=== PATIENT | female | born 1980 | race Caucasian/White ===

== ENCOUNTER 2016-10-05 12:11 | Emergency (ER) | payer OTHER ==
[2016-10-05] MEDS ORDERED: Adacel Vial IM ONE ×2 (12:30→12:32)
--- NOTE | 2016-10-05 12:35 | ERPHSYRPT ---
- History of Present Illness Time Seen by Provider: 10/05/16 12:24 Source: patient, family Patient Subjective Stated Complaint: PT REPROTS STEPPING ON A FENCE POST LAST NIGHT-REPORTS UNABLE TO STOP BLEEDING-DENIES NUMBNESS OR TINLGING Triage Nursing Assessment: PT PINK WARM ET [id number] NOTED TO RIGHT FOOT-BLEEDING CONTROLLED WITH PRESSURE-PEDAL PULSE REGULAR ET STRONG Physician History: CC: cut foot Hx: 36 y/o patient of Dr Chaim Heck cut right foot on a fence post last night. She needs tetanus vaccine. She has propped it up and cleansed the wound but it continues to have some bleeding. No FB. No other injuries. Pain mild. Occurred: yesterday Lower Extremities Pain: foot: right Allergies/Adverse Reactions: metronidazole [From Flagyl] Allergy (Mild, Verified 10/05/16 12:23) trimethoprim [From Septra] Allergy (Mild, Verified 10/05/16 12:23) Home Medications: Metoprolol Succinate 25 mg Xl* [Toprol-Xl 25MG Tablets] 25 mg PO DAILY [History] Paroxetine HCl [Paxil] 10 mg PO DAILY 05/29/15 [History] Hx Tetanus, Diphtheria Vaccination/Date Given: No Hx Influenza Vaccination/Date Given: Yes (2015) Hx Pneumococcal Vaccination/Date Given: No Immunizations Up to Date: Yes - Review of Systems Constitutional: No Symptoms Musculoskeletal: Injury (right foot) Neurological: No Focal Weakness, No Headache, No Parasthesia - Past Medical History Pertinent Past Medical History: Yes Neurological History: No Pertinent History ENT History: No Pertinent History Cardiac History: Arrhythmia, Other Respiratory History: Asthma Endocrine Medical History: Hypothyroidism, Other Musculoskeletal History: No Pertinent History GI Medical History: No Pertinent History History: No Pertinent History Psycho-Social History: Anxiety, Depression, Other Female Reproductive Disorders: Endometriosis Other Medical History: bradycardia with bigemity, low blood sugar - Past Surgical History Past Surgical History: Yes Neuro Surgical History: No Pertinent History Cardiac: No Pertinent History Respiratory: No Pertinent History Gastrointestinal: No Pertinent History Genitourinary: No Pertinent History Musculoskeletal: No Pertinent History Female Surgical History: Tubal Ligation Other Surgical History: half of thyroid removed. SKIN GRAFT - Social History Smoking Status: Current every day smoker How long have you smoked: YRS Exposure to second hand smoke: Yes Drug Use: none Patient Lives Alone: No Significant Family History: no pertinent family hx - Female History Hx Last Menstrual Period: THIS MONTH Hx Now: No - Nursing Vital Signs Nursing Vital Signs: Initial Vital Signs Pulse Rate 68 10/05/16 12:19 Respiratory Rate 20 10/05/16 12:19 Blood Pressure 142/87 10/05/16 12:19 O2 Sat by Pulse Oximetry 96 10/05/16 12:19 Pain Scale Pain Intensity 2 - Physical Exam General Appearance: alert Cardiovascular/Respiratory Exam: regular rate/rhythm Neuro/Tendon Exam: normal sensation, normal motor functions Mental Status Exam: alert, oriented x 3, cooperative Skin Exam: warm, dry, laceration (1 cm right plantar distal. No FB. Mild oozing. Not gaping. No sign of infection.) SpO2: 96 Oxygen Delivery: Room Air - Course Nursing assessment & vital signs reviewed: Yes Ordered Tests: Active Orders 24 hr Category Date Time Status Wound Care STAT Care 10/05/16 12:30 Active Medication Summary Discontinued Medications Generic Name Dose Route Start Last Admin Trade Name Freq PRN Reason Stop Dose Admin Diphtheria/Tetanus/Acell Pertussis 0.5 ml 10/05/16 12:30 Adacel Vial IM 10/05/16 12:31 .ONCE ONE - Progress Progress Note: 10/05/16 12:33 She declines xray. Wound too old for sutures and they do not appear indicated. Will cleanse and apply surgicel dressing. Wound instr given. Counseled pt/family regarding: diagnosis, need for follow-up - Departure Time of Disposition: 12:33 Departure Disposition: Home Clinical Impression: Foot laceration Qualifiers: Encounter type: initial encounter Laterality: right Qualified Code(s): S91.311A - Laceration without foreign body, right foot, initial encounter Condition: Stable Critical Care Time: No Referrals: LORETTA HECK [ACTIVE STAFF] - Additional Instructions: Elevate leg today. Starting tomorrow cleanse wound with mild soap and water daily. Keep wound clean and dry. Report any sign of infection right away. LACERATION CARE 1. Do not use peroxide, merthiolate, alcohol, or betadine. 2. Keep wound clean and dry. 3. Change dressing if it becomes wet or soiled. 4. If you must work, wear protective covering. 5. You may return to the emergency department or see your family physician for suture removal. 6. See your family physician or return to the emergency department for any of the following signs or symptoms: A. Redness B. Swelling C. Discolored drainage D. Red streaks E. Elevated temperature F. Other signs of infection
[2016-10-05 13:27] VITALS: BP 131/77; PULSE 50; O2SAT 99
== END 2016-10-05 12:55 | disposition home or self-care (01) ==
LOC: ED 12:11
DX: S91.311A Laceration without foreign body, right foot, initial encounter (principal); W45.8XXA Other foreign body or object entering through skin, initial encounter
CPT/HCPCS: 90471; 90715; 99283

== ENCOUNTER 2017-11-20 19:22 | Emergency (ER) | payer OTHER ==
--- NOTE | 2017-11-20 19:55 | ERPHSYRPT ---
- History of Present Illness Time Seen by Provider: 11/20/17 19:47 Source: patient Exam Limitations: no limitations Patient Subjective Stated Complaint: pt states she has a pinched nerve at l5 and has been having back pain for the last week. rates pain at 10/10 and states it shoots up the middle of her back Triage Nursing Assessment: pt alert and oriented, answers questions approp. pt ambulatory with slow gait noted, respiration nonlabored. skin pink warm and dry. pedal pulses and cap refill to bilat lwoer ext wnl. Physician History: This is a 37-year-old white female with history of pinched nerve in the back and pain in her back since 14 years old. Also history of arrhythmia asthma hypothyroidism anxiety, depression, endometriosis She arrives with complaint of pain in her back midline lumbar region symptoms since one week. She denies any new injuries states she is taking Naprosyn at home. Pain is worse with movement. Past medical history includes arrhythmia, asthma, hypothyroidism, anxiety, depression, endometriosis, bradycardia with bigeminy, low blood sugar Past surgical history includes tubal ligation half of her thyroid removed skin graft, uterine ablation Social history positive tobacco use denies alcohol or illicit drug use. Timing/Duration: week(s) Severity: moderate (one week) Modifying Factors: Improves With: movement Associated Symptoms: No nausea, No vomiting, No abdominal pain, No shortness of breath, No heartburn, No diaphoresis, No cough, No chills, No chest pain, No fever, No headaches, No loss of appetite, No malaise, No rash, No syncope, No seizure, No weakness Allergies/Adverse Reactions: metronidazole [From Flagyl] Allergy (Mild, Verified 10/05/16 12:23) trimethoprim [From Septra] Allergy (Mild, Verified 10/05/16 12:23) Home Medications: Metoprolol Succinate 25 mg Xl* [Toprol-Xl 25MG Tablets] 12.5 mg PO DAILY [History] Paroxetine HCl [Paxil] 10 mg PO DAILY 05/29/15 [History] Hx Tetanus, Diphtheria Vaccination/Date Given: Yes (2016) Hx Influenza Vaccination/Date Given: No Hx Pneumococcal Vaccination/Date Given: No Immunizations Up to Date: Yes - Review of Systems Constitutional: No Fever, No Chills Eyes: No Symptoms Ears, Nose, & Throat: No Symptoms Respiratory: No Cough, No Dyspnea Cardiac: No Chest Pain, No Edema, No Syncope Abdominal/Gastrointestinal: No Abdominal Pain, No Nausea, No Vomiting, No Diarrhea Genitourinary Symptoms: No Dysuria Musculoskeletal: Back Pain, No Arthralgias, No Neck Pain, No Deformity, No Fall , No Injury, No Joint Redness, No Joint Pain, No Joint Swelling, No Myalgias Skin: No Rash Neurological: No Dizziness, No Focal Weakness, No Sensory Changes Psychological: No Symptoms Endocrine: No Symptoms All Other Systems: Reviewed and Negative - Past Medical History Pertinent Past Medical History: Yes Neurological History: No Pertinent History ENT History: No Pertinent History Cardiac History: Arrhythmia, Other Respiratory History: Asthma Endocrine Medical History: Hypoglycemia, Hypothyroidism, Other Musculoskeletal History: No Pertinent History GI Medical History: No Pertinent History History: No Pertinent History Psycho-Social History: Anxiety, Depression, Other Female Reproductive Disorders: Endometriosis Other Medical History: bradycardia with bigeminy, borderline personality - Past Surgical History Past Surgical History: Yes Neuro Surgical History: No Pertinent History Cardiac: No Pertinent History Respiratory: No Pertinent History Gastrointestinal: No Pertinent History Genitourinary: No Pertinent History Musculoskeletal: No Pertinent History Female Surgical History: Dilation & Curettage, Tubal Ligation Other Surgical History: half of thyroid removed. SKIN GRAFT - Social History Smoking Status: Current every day smoker How long have you smoked: 12 yrs Exposure to second hand smoke: Yes Drug Use: none Patient Lives Alone: No Significant Family History: no pertinent family hx - Female History Hx Last Menstrual Period: uterine ablation Hx Now: No - Nursing Vital Signs Nursing Vital Signs: Initial Vital Signs Pulse Rate 67 11/20/17 19:30 Respiratory Rate 16 11/20/17 19:30 Blood Pressure 145/85 11/20/17 19:30 O2 Sat by Pulse Oximetry 97 11/20/17 19:30 Pain Scale Pain Intensity [Lower Back] 10 Pain Intensity 9 - Physical Exam General Appearance: mild distress Eye Exam: PERRL/EOMI, eyes nml inspection Ears, Nose, Throat Exam: normal ENT inspection, TMs normal, pharynx normal, moist mucous membranes Neck Exam: normal inspection, non-tender, supple, full range of motion Respiratory Exam: normal breath sounds, lungs clear, No respiratory distress Cardiovascular Exam: regular rate/rhythm, normal heart sounds, normal peripheral pulses Gastrointestinal/Abdomen Exam: soft, normal bowel sounds, No tenderness, No mass Back Exam: other (drying machine back tender midline lumbar region with palpation and movement) Extremity Exam: normal inspection, normal range of motion, pelvis stable Neurologic Exam: alert, oriented x 3, 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, 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, normal mood/affect, nml cerebellar function, nml station & gait, sensation nml, No motor deficits Skin Exam: normal color, warm, dry, No rash Lymphatic Exam: No adenopathy SpO2 Interpretation: normal (97%) SpO2: 97 Oxygen Delivery: Room Air Ordered Tests: Medication Summary Discontinued Medications Generic Name Dose Route Start Last Admin Trade Name Freq PRN Reason Stop Dose Admin Cyclobenzaprine HCl 10 mg 11/20/17 20:49 11/20/17 20:53 Cyclobenzaprine 10 Mg PO 11/20/17 20:50 10 mg STAT ONE Administration Cyclobenzaprine HCl Confirm 11/20/17 20:52 Cyclobenzaprine 10 Mg Administered 11/20/17 20:53 Dose 10 mg .ROUTE .STK-MED ONE Ketorolac Tromethamine 60 mg 11/20/17 20:34 11/20/17 20:38 Toradol 30 Mg Injection IM 11/20/17 20:35 60 mg STAT ONE Administration Ketorolac Tromethamine Confirm 11/20/17 20:35 Toradol 30 Mg Injection Administered 11/20/17 20:36 Dose 60 mg .ROUTE .STK-MED ONE - Progress Progress: improved Progress Note: 11/20/17 20:50 29-year-old white female arrives with complaint of midline lumbar back pain symptoms for a week she denies any injury she does have a history of a pinched nerve in her back in the past she has no neurologic symptoms pain is localized midline lumbar region with palpation and movement. Patient denies any new injuries patient has been given Toradol 60 mg IM will give patient Flexeril 10 mg by mouth (she does not want a shot of Norflex) Will plan to have the patient return home Flexeril as prescribed continue Naprosyn. Patient is to follow-up with her family doctor. - Departure Time of Disposition: 20:51 Departure Disposition: Home Clinical Impression: Lumbar strain Back pain Qualifiers: Back pain location: low back pain Chronicity: acute Back pain laterality: midline Sciatica presence: without sciatica Qualified Code(s): M54.5 - Low back pain Condition: Fair Critical Care Time: No Referrals: LORETTA HECK [Primary Care Provider] - Instructions: Low Back Pain (DC) Additional Instructions: Return home. Continue Naprosyn may alternatively take Advil every 6 hours do not take both. Tylenol every 4 hours as needed for pain. Flexeril as prescribed. Follow-up with your family doctor if symptoms are worse, no better in 48 hours, or persist longer than one week. Return for acute distress or for severe symptoms. May return to work November 23 unless problems if so follow-up with your family doctor. Prescriptions: Cyclobenzaprine HCl [Flexeril] 10 mg PO TID #15 tablet
[2017-11-20] MEDS ORDERED: TORAdol 30 mg Injection IM ONE (20:34)
[2017-11-20] MEDS ORDERED: TORAdol 30 mg Injection ONE (20:35)
[2017-11-20] MEDS ORDERED: Cyclobenzaprine 10 MG PO ONE ×2 (20:49→21:13)
[2017-11-20] MEDS ORDERED: Cyclobenzaprine 10 MG ONE ×2 (20:52→21:16)
[2017-11-20 21:12] VITALS: O2SAT 97
[2017-11-20 21:39] VITALS: BP 127/69; PULSE 51
== END 2017-11-20 21:30 | disposition home or self-care (01) ==
LOC: ED 19:22
DX: S39.012A Strain of muscle, fascia and tendon of lower back, initial encounter (principal); M54.5 Low back pain; Z79.899 Other long term (current) drug therapy
CPT/HCPCS: 96372; 99284; J1885; A9270-GY

== ENCOUNTER 2018-07-27 11:09 | Day surgery (SDC) | payer OTHER ==
[2018-07-27] MEDS ORDERED: Xylocaine-Mpf 2% 5 Ml Vial IJ ONE (11:10)
[2018-07-27] MEDS ORDERED: DIPRIVAN 200 MG/20 ML IV ONE (11:10)
[2018-07-27] MEDS ORDERED: Depo-Medrol 40 MG/ML IM ONE (11:10)
--- NOTE | 2018-07-27 14:44 | XRAY ---
Indication: Bilateral L4-S1 MBB. Intraoperative fluoroscopy was provided for 16 seconds. Single digital spot image submitted for interpretation demonstrates posterior needle tips projecting over the expected course of the left and right L4-S1 nerve roots. Correlate with intraoperative findings/report.
--- NOTE | 2018-07-27 15:01 | XRAY ---
16 seconds fluoroscopy time in surgery fro bilateral L4-S1 MBB.
[2018-07-27] MEDS ORDERED: Lactated Ringers 1,000 ML IV ONE (17:03)
== END 2018-07-27 13:45 | disposition home or self-care (01) ==
LOC: SDC-PAIN 11:09
PROVIDERS: ATTEND Psychiatry & Neurology Pain Medicine
DX: M47.816 Spondylosis without myelopathy or radiculopathy, lumbar region (principal); M19.90 Unspecified osteoarthritis, unspecified site; R00.2 Palpitations; L30.9 Dermatitis, unspecified; F32.9 Major depressive disorder, single episode, unspecified
CPT/HCPCS: 64493; 64494; 72020; 77002; 84703; J1030; J2704

== ENCOUNTER 2018-07-29 01:56 | Emergency (ER) | payer OTHER ==
[2018-07-29] MEDS ORDERED: Zofran 4 MG/2 ML VIAL IV ONE (02:11)
[2018-07-29] MEDS ORDERED: Sodium Chloride 0.9% 1000 ML 1,000 ML IV STA (02:11)
[2018-07-29] MEDS ORDERED: MORPHINE SULFATE 2 MG INJ IV ONE (02:11)
[2018-07-29 02:35] LABS: BASOPHIL % 0.2 % (0.0-0.4); Basophil (Absolute #) 0.03 (0-0.4); Eosinophil % 0.3 % (0.00-5.0); Eosinophil (Absolute #) 0.05 (0-0.5); Granulocyte Absolute (ANC) 12.68 (1.4-6.9); Hematocrit 41.5 % (35-47); Lymphocyte (Absolute #) 1.77 (1.0-4.6); Lymphocytes % 11.7 % (24.0-44.0); Mean Cell Volume 86.8 fl (78-100); Mean Corpuscular Hemoglobin 29.3 pg (26-32); Mean Corpuscular Hgb Concent. 33.7 g/dl (32-36); Mean Platelet Volume 11.1 fl (6-9.5); Monocyte (Absolute #) 0.57 (0.0-1.3); Monocytes % 3.8 % (0.0-12.0); Platelet Count 275 K/mm3 (150-450); Red Blood Count 4.78 M/mm3 (4.1-5.4); Red Cell Distribution Width 12.9 % (11.5-14.0); White Blood Count 15.1 K/mm3 (4.0-10.5)
[2018-07-29] MEDS ORDERED: Zofran 4 MG/2 ML VIAL ONE (02:39)
[2018-07-29] MEDS ORDERED: MORPHINE SULFATE 2 MG INJ ONE (02:40)
[2018-07-29] MEDS ORDERED: Sodium Chloride 0.9% 1000 ML 1,000 ML ONE (02:40)
[2018-07-29 02:57] LABS: ALKALINE PHOSPHATASE 64 U/L (38-126); ANION GAP 13.4 MEQ/L (5-15); BLOOD UREA NITROGEN 12 mg/dL (7-17); CHLORIDE 103 mmol/L (98-107); Calcium 9.5 mg/dL (8.4-10.2); Carbon Dioxide 27 mmol/L (22-30); Creatinine 1 0.77 mg/dL (0.52-1.04); Glucose 114 mg/dL (74-106); NT PRO BNP 101 pg/mL (0-450); Potassium 4.6 mmol/L (3.5-5.1); SGOT/AST 23 U/L (14-36); SGPT/ALT 23 U/L (0-35); SODIUM 139 mmol/L (137-145); Total Protein 7.4 g/dL (6.3-8.2)
[2018-07-29] MEDS ORDERED: Protonix 40MG Tablet PO ONE (03:08)
[2018-07-29] MEDS ORDERED: Pepcid 20 MG PO ONE (03:09)
[2018-07-29] MEDS ORDERED: Pepcid 20 MG ONE (03:12)
[2018-07-29] MEDS ORDERED: Protonix 40MG Tablet ONE (03:12)
[2018-07-29 04:30] LABS: Appearance SLIGHTLY CLOUDY (CLEAR); Bacteria RARE /HPF (NEGATIVE); Bilirubin NEGATIVE (NEGATIVE); Blood NEGATIVE Ery/ul (0-5); Epithelial Cells FEW /HPF (FEW); Glucose NEGATIVE (NEGATIVE); Ketones NEGATIVE (NEGATIVE); Leukocyte Esterase NEGATIVE (NEGATIVE); Mucus SLIGHT /HPF (NEGATIVE); Nitrite NEGATIVE (NEGATIVE); Protein,Urine Dip NEGATIVE (Negative); Specific Gravity 1.014 (1.005-1.025); Urobilinogen NEGATIVE mg/dL (0-1)
--- NOTE | 2018-07-29 05:39 | ERPHSYRPT ---
- History of Present Illness Historian: patient Exam Limitations: no limitations Patient Subjective Stated Complaint: pt states, "my boyfriend and I were getting ready to go watch a movie and lay down and my chest started hurting". Pt describes chest pain as sharp as if someone were stabbing with a knife". Triage Nursing Assessment: pt arrived by ambulance, pt aeto x3, cooperative, tearful at times. Pt c/o midsternal chest pain with radiation to back. Pt had pain block to lower back yesterday done [facility] by Dr. Mir. Lungs clear, heart tones reg, abd soft with active bs x4 quad. no edema noted. Physician History: Pt is a 37 y/o female with a h/o bradycardia with bigeminies, presented to the ED with chest pain. Pt stated, the pain is substernal and is worse with palpation. Pt also states, has epigastric discomfort as well. Pt did get ASA 325 on route, as well as Nitro s.l. The pain did not improve. Pt denies F/C/ S. No SOB or cough. No N/V/D or diaphoresis. Timing/Duration: today Activities at Onset: none Quality: sharpness, stabbing Location: substernal, epigastric Chest Pain Radiation: no radiation Severity of Pain-Max: moderate Severity of Pain-Current: mild Modifying Factors: Improves With: morphine Associated Symptoms: abdominal pain (epigastric) Prior Chest Pain/Cardiac Workup: no prior chest pain Nitro Today/Relief: 0.4 mg x 1 Aspirin Treatment Today: 325 mg x 1 Allergies/Adverse Reactions: metronidazole [From Flagyl] Allergy (Mild, Verified 10/05/16 12:23) trimethoprim [From Septra] Allergy (Mild, Verified 10/05/16 12:23) amitriptyline Adverse Reaction (Mild, Verified 07/29/18 02:27) Home Medications: Metoprolol Succinate 25 mg Xl* [Toprol-Xl 25MG Tablets] 12.5 mg PO DAILY [History] Paroxetine HCl [Paxil] 10 mg PO DAILY 05/29/15 [History] Hydrocodone/APAP 5-325 Tab^^^ [Hardaway 5-325 Tablet^^^] 5 - 325 mg PO Q4-6HPRN PRN 07/29/18 [History] hydrOXYzine HCl [Hydroxyzine HCl] 25 mg PO TID 07/29/18 [History] Hx Tetanus, Diphtheria Vaccination/Date Given: Yes Hx Influenza Vaccination/Date Given: No Hx Pneumococcal Vaccination/Date Given: No Immunizations Up to Date: Yes - Review of Systems Constitutional: No Fever, No Chills Eyes: No Symptoms Ears, Nose, & Throat: No Symptoms Respiratory: No Cough, No Dyspnea Cardiac: Chest Pain Abdominal/Gastrointestinal: Abdominal Pain Genitourinary Symptoms: No Dysuria Musculoskeletal: No Back Pain, No Neck Pain Neurological: No Dizziness, No Focal Weakness, No Sensory Changes - Past Medical History Pertinent Past Medical History: Yes Neurological History: No Pertinent History ENT History: No Pertinent History Cardiac History: Arrhythmia Respiratory History: Asthma Endocrine Medical History: Hypothyroidism Musculoskeletal History: Arthritis GI Medical History: No Pertinent History History: No Pertinent History Psycho-Social History: Anxiety, Depression, Other Female Reproductive Disorders: No Pertinent History Other Medical History: bradycardia with bigeminy, borderline personality - Past Surgical History Past Surgical History: Yes Neuro Surgical History: No Pertinent History Cardiac: No Pertinent History Respiratory: No Pertinent History Gastrointestinal: No Pertinent History Genitourinary: No Pertinent History Musculoskeletal: No Pertinent History Female Surgical History: Dilation & Curettage, Tubal Ligation Other Surgical History: half of thyroid removed. SKIN GRAFT - Social History Smoking Status: Current every day smoker How long have you smoked: 12 yrs Exposure to second hand smoke: Yes Drug Use: none Patient Lives Alone: No Significant Family History: no pertinent family hx - Female History Hx Last Menstrual Period: 03/2017 Hx Now: No - Nursing Vital Signs Nursing Vital Signs: Initial Vital Signs Temperature 98.0 F 07/29/18 02:23 Pulse Rate 49 L 07/29/18 02:23 Respiratory Rate 17 07/29/18 02:23 Blood Pressure 125/76 07/29/18 02:23 O2 Sat by Pulse Oximetry 93 L 07/29/18 02:23 Pain Scale Pain Intensity 10 - Physical Exam General Appearance: no apparent distress, alert Eye Exam: PERRL/EOMI, eyes nml inspection Ears, Nose, Throat Exam: normal ENT inspection, moist mucous membranes Neck Exam: normal inspection, non-tender, supple, full range of motion Respiratory Exam: normal breath sounds, lungs clear, No respiratory distress Cardiovascular Exam: regular rate/rhythm, normal heart sounds, other ( reproducable chest pain with palpation) Gastrointestinal/Abdomen Exam: soft, tenderness (epigastric), No mass Back Exam: normal inspection, No CVA tenderness, No vertebral tenderness Extremity Exam: normal inspection, normal range of motion Neurologic Exam: alert, oriented x 3, cooperative, normal mood/affect, sensation nml, No motor deficits Skin Exam: normal color, warm, dry SpO2: 93 - Course Nursing assessment & vital signs reviewed: Yes EKG Interpreted by Me: RATE (47 bpm), Sinus Donny, NORMAL INTERVALS, NORMAL QRS Ordered Tests: Active Orders 24 hr Category Date Time Status Oxygen-ED Only Nasal Cannula 2 lpm Care 07/29/18 02:11 Active CBC W DIFF Stat Lab 07/29/18 02:11 Completed CMP Stat Lab 07/29/18 02:44 Completed D-DIMER QUANTITATION Stat Lab 07/29/18 02:44 Completed NT PRO BNP Stat Lab 07/29/18 02:44 Completed TROPONIN Q3H Lab 07/29/18 02:44 Completed TROPONIN Q3H Lab 07/29/18 05:03 Completed TROPONIN Q3H Lab 07/29/18 08:15 Ordered TROPONIN Q3H Lab 07/29/18 11:15 Ordered TROPONIN Q3H Lab 07/29/18 14:15 Ordered Urinalysis with Microscopy Stat Lab 07/29/18 04:25 Completed Medication Summary Discontinued Medications Generic Name Dose Route Start Last Admin Trade Name Maurizioq PRN Reason Stop Dose Admin Famotidine 40 mg 07/29/18 03:09 07/29/18 03:13 Pepcid 20 Mg PO 07/29/18 03:10 40 mg STAT ONE Administration Famotidine Confirm 07/29/18 03:12 Pepcid 20 Mg Administered 07/29/18 03:13 Dose 40 mg .ROUTE .STK-MED ONE Sodium Chloride 1,000 mls @ 999 mls/hr 07/29/18 02:11 07/29/18 02:43 Sodium Chloride 0.9% 1000 Ml IV 07/29/18 03:11 999 mls/hr .Q1H1M STA Administration Sodium Chloride Confirm 07/29/18 02:40 Sodium Chloride 0.9% 1000 Ml Administered 07/29/18 02:41 Dose 1,000 mls @ ud .ROUTE .STK-MED ONE Morphine Sulfate 2 mg 07/29/18 02:11 07/29/18 02:43 Morphine Sulfate 2 Mg Inj IV 07/29/18 02:12 2 mg STAT ONE Administration Morphine Sulfate Confirm 07/29/18 02:40 Morphine Sulfate 2 Mg Inj Administered 07/29/18 02:41 Dose 2 mg .ROUTE .STK-MED ONE Ondansetron HCl 4 mg 07/29/18 02:11 07/29/18 02:43 Zofran 4 Mg/2 Ml Vial IV 07/29/18 02:12 4 mg STAT ONE Administration Ondansetron HCl Confirm 07/29/18 02:39 Zofran 4 Mg/2 Ml Vial Administered 07/29/18 02:40 Dose 4 mg .ROUTE .STK-MED ONE Pantoprazole Sodium 40 mg 07/29/18 03:08 07/29/18 03:14 Protonix 40mg Tablet PO 07/29/18 03:09 40 mg STAT ONE Administration Pantoprazole Sodium Confirm 07/29/18 03:12 Protonix 40mg Tablet Administered 07/29/18 03:13 Dose 40 mg .ROUTE .STK-MED ONE Lab/Rad Data: Laboratory Result Diagrams 07/29/18 02:11 07/29/18 02:44 Laboratory Results 07/29/18 07/29/18 07/29/18 Range/Units 05:03 04:25 02:44 WBC (4.0-10.5) K/mm3 RBC (4.1-5.4) M/mm3 Hgb (12.0-16.0) gm/dl Hct (35-47) % MCV (78-100) fl MCH (26-32) pg MCHC (32-36) g/dl RDW (11.5-14.0) % Plt Count (150-450) K/mm3 MPV (6-9.5) fl Gran % (36.0-66.0) % Eos # (Auto) (0-0.5) Absolute Lymphs (auto) (1.0-4.6) Absolute Monos (auto) (0.0-1.3) Lymphocytes % (24.0-44.0) % Monocytes % (0.0-12.0) % Eosinophils % (0.00-5.0) % Basophils % (0.0-0.4) % Absolute Granulocytes (1.4-6.9) Basophils # (0-0.4) D-Dimer (215-500) ng/mL Sodium (137-145) mmol/L Potassium (3.5-5.1) mmol/L Chloride (98-107) mmol/L Carbon Dioxide (22-30) mmol/L Anion Gap (5-15) MEQ/L BUN (7-17) mg/dL Creatinine (0.52-1.04) mg/dL Estimated GFR ML/MIN Glucose (74-106) mg/dL Calcium (8.4-10.2) mg/dL Total Bilirubin (0.2-1.3) mg/dL AST (14-36) U/L ALT (0-35) U/L Alkaline Phosphatase (38-126) U/L Troponin I < 0.012 < 0.012 (0.000-0.034) ng/mL NT-Pro-B Natriuret Pep (0-450) pg/mL Serum Total Protein (6.3-8.2) g/dL Albumin (3.5-5.0) g/dL Urine Color YELLOW (YELLOW) Urine Appearance SLIGHTLY CLOUDY (CLEAR) Urine pH 6.0 (5-6) Ur Specific Gobler 1.014 (1.005-1.025) Urine Protein NEGATIVE (Negative) Urine Ketones NEGATIVE (NEGATIVE) Urine Blood NEGATIVE (0-5) Oscar/ul Urine Nitrite NEGATIVE (NEGATIVE) Urine Bilirubin NEGATIVE (NEGATIVE) Urine Urobilinogen NEGATIVE (0-1) mg/dL Ur Leukocyte Esterase NEGATIVE (NEGATIVE) Urine WBC (Auto) NONE (0-5) /HPF Urine RBC (Auto) NONE (0-2) /HPF U Epithel Cells (Auto) FEW (FEW) /HPF Urine Bacteria (Auto) RARE (NEGATIVE) /HPF Urine Mucus (Auto) SLIGHT (NEGATIVE) /HPF Urine Glucose NEGATIVE (NEGATIVE) mg/dL 07/29/18 07/29/18 07/29/18 Range/Units 02:44 02:44 02:11 WBC 15.1 H (4.0-10.5) K/mm3 RBC 4.78 (4.1-5.4) M/mm3 Hgb 14.0 (12.0-16.0) gm/dl Hct 41.5 (35-47) % MCV 86.8 (78-100) fl MCH 29.3 (26-32) pg MCHC 33.7 (32-36) g/dl RDW 12.9 (11.5-14.0) % Plt Count 275 (150-450) K/mm3 MPV 11.1 H (6-9.5) fl Gran % 84.0 H (36.0-66.0) % Eos # (Auto) 0.05 (0-0.5) Absolute Lymphs (auto) 1.77 (1.0-4.6) Absolute Monos (auto) 0.57 (0.0-1.3) Lymphocytes % 11.7 L (24.0-44.0) % Monocytes % 3.8 (0.0-12.0) % Eosinophils % 0.3 (0.00-5.0) % Basophils % 0.2 (0.0-0.4) % Absolute Granulocytes 12.68 H (1.4-6.9) Basophils # 0.03 (0-0.4) D-Dimer < 171 L (215-500) ng/mL Sodium 139 (137-145) mmol/L Potassium 4.6 (3.5-5.1) mmol/L Chloride 103 (98-107) mmol/L Carbon Dioxide 27 (22-30) mmol/L Anion Gap 13.4 (5-15) MEQ/L BUN 12 (7-17) mg/dL Creatinine 0.77 (0.52-1.04) mg/dL Estimated GFR > 60.0 ML/MIN Glucose 114 H (74-106) mg/dL Calcium 9.5 (8.4-10.2) mg/dL Total Bilirubin 0.30 (0.2-1.3) mg/dL AST 23 (14-36) U/L ALT 23 (0-35) U/L Alkaline Phosphatase 64 (38-126) U/L Troponin I (0.000-0.034) ng/mL NT-Pro-B Natriuret Pep 101 (0-450) pg/mL Serum Total Protein 7.4 (6.3-8.2) g/dL Albumin 4.0 (3.5-5.0) g/dL Urine Color (YELLOW) Urine Appearance (CLEAR) Urine pH (5-6) Ur Specific Gobler (1.005-1.025) Urine Protein (Negative) Urine Ketones (NEGATIVE) Urine Blood (0-5) Oscar/ul Urine Nitrite (NEGATIVE) Urine Bilirubin (NEGATIVE) Urine Urobilinogen (0-1) mg/dL Ur Leukocyte Esterase (NEGATIVE) Urine WBC (Auto) (0-5) /HPF Urine RBC (Auto) (0-2) /HPF U Epithel Cells (Auto) (FEW) /HPF Urine Bacteria (Auto) (NEGATIVE) /HPF Urine Mucus (Auto) (NEGATIVE) /HPF Urine Glucose (NEGATIVE) mg/dL - Progress Progress: improved Air Movement: good Progress Note: 07/29/18 05:41 Pt was seen and examined. Lab work was done and EKG. Pt is in sinus donny as she is on a beta osito. She is non symptomatic. Troponins x2 are normal. D Dimer is normal and UA as well. Pt has some leukocytosis that is probably reactive. Pt did get Morphine once, and I gave her Protonix and Pepcid PO. Pt is much improved and pain resolved. Pt should f/u with her PCp and consider a course of Protonix PO vs GI referral. Blood Culture(s) Obtained: No Antibiotics given: No Will see patient in: office Counseled pt/family regarding: need for follow-up - Departure Departure Disposition: Home Clinical Impression: Chest pain Condition: Stable Critical Care Time: No Referrals: ADEOLA DEGROOT NP [Primary Care Provider] - Additional Instructions: F/U with PCp for a Protonix course vs GI referral.
[2018-07-29 05:55] VITALS: BP 118/78; PULSE 46; O2SAT 98
== END 2018-07-29 06:04 | disposition home or self-care (01) ==
LOC: ED 01:56
DX: R07.9 Chest pain, unspecified (principal); F41.9 Anxiety disorder, unspecified; F32.9 Major depressive disorder, single episode, unspecified; E03.9 Hypothyroidism, unspecified; Z79.899 Other long term (current) drug therapy
CPT/HCPCS: 36415; 80053; 81001; 83880; 84484; 85025; 85379; 96360; 96374; 96375; 99284; J2270; J2405; A9270-GY

== ENCOUNTER 2020-11-21 19:33 | Emergency (ER) | payer OTHER ==
[2020-11-21] MEDS ORDERED: Sodium Chloride 0.9% 1000 ML 1,000 ML IV STA (20:35)
[2020-11-21 20:53] LABS: Appearance SLIGHTLY CLOUDY (CLEAR); Bacteria RARE /HPF (NEGATIVE); Bilirubin NEGATIVE (NEGATIVE); Blood NEGATIVE Ery/ul (0-5); Epithelial Cells RARE /HPF (FEW); Glucose NEGATIVE (NEGATIVE); Ketones NEGATIVE (NEGATIVE); Leukocyte Esterase NEGATIVE (NEGATIVE); Mucus SLIGHT /HPF (NEGATIVE); Nitrite NEGATIVE (NEGATIVE); Protein,Urine Dip NEGATIVE (Negative); RBC 0-2 /HPF (0-2); Specific Gravity 1.021 (1.005-1.025); Urobilinogen 2 mg/dL (0-1)
[2020-11-21] MEDS ORDERED: Sodium Chloride 0.9% 1000 ML 1,000 ML ONE (21:36)
[2020-11-21 21:38] LABS: Absolute Neutrophil Ct (ANC) 6.32 (1.4-6.9); BASOPHIL % 0.5 % (0.0-0.4); Basophil (Absolute #) 0.05 (0-0.4); Eosinophil % 2.2 % (0.00-5.0); Eosinophil (Absolute #) 0.21 (0-0.5); Hematocrit 42.4 % (35-47); Lymphocytes % 24.2 % (24.0-44.0); Mean Cell Volume 86.4 fl (78-100); Mean Corpuscular Hemoglobin 28.5 pg (26-32); Mean Platelet Volume 10.6 fl (7.5-11.0); Monocyte (Absolute #) 0.62 (0.0-1.3); Monocytes % 6.5 % (0.0-12.0); Neutrophil % 66.6 % (36.0-66.0); Platelet Count 284 K/mm3 (150-450); Red Blood Count 4.91 M/mm3 (4.1-5.4); Red Cell Distribution Width 13.7 % (11.5-14.0); White Blood Count 9.5 K/mm3 (4.0-10.5)
--- NOTE | 2020-11-21 21:46 | ERPHSYRPT ---
- History of Present Illness Time Seen by Provider: 11/21/20 20:30 Historian: patient Exam Limitations: no limitations Patient Subjective Stated Complaint: several bm daily x 3 days, but not loose, having abd pain to LUQ and mid abd region Triage Nursing Assessment: pt had LUQ yesterday and it radiated to mid center upper abd region this morning. Pt has had several normal bm's the last few days, not diarrhea, and no BM today. Abd soft with active bs x4 quad, nontender on palpation. Pt c/o low back pain and frequent urination, no burning with urinating. Physician History: Patient is a 40-year-old female presents to our ED with complaints of left upper quadrant pain radiating towards her epigastric region. Pain started this morning. Patient states that she has been experiencing several bowel movements per day for the past few days. No diarrhea. No nausea or vomiting. No rash. No trauma. No fevers. Pain described as an ache that radiates from flank to epigastric region. No chest pain no shortness of breath. Patient denies history of the same. Symptoms are mild to moderate in intensity. No specific worsening improving factors. Patient voices no other complaints or concerns at this time. Timing/Duration: today Activities at Onset: none Quality: aching Abdominal Pain Onset Location: LUQ Pain Radiation: epigastric Severity of Pain-Max: moderate Severity of Pain-Current: mild Modifying Factors: Improves With: nothing Associated Symptoms: denies symptoms Previous symptoms: no prior history Allergies/Adverse Reactions: metronidazole [From Flagyl] Allergy (Mild, Verified 11/21/20 20:39) trimethoprim [From Septra] Allergy (Mild, Verified 11/21/20 20:39) amitriptyline Adverse Reaction (Mild, Verified 11/21/20 20:39) Home Medications: Metoprolol Succinate 25 mg Xl* [Toprol-Xl 25MG Tablets] 12.5 mg PO DAILY 05/29/15 [History] PARoxetine HCl [Paxil] 20 mg PO DAILY 05/29/15 [History] Baclofen 10 mg PO DAILY PRN PRN 11/21/20 [History] Melatonin 10 mg PO DAILY 11/21/20 [History] Meloxicam 15 mg PO DAILY 11/21/20 [History] Hx Tetanus, Diphtheria Vaccination/Date Given: Yes Hx Influenza Vaccination/Date Given: No Hx Pneumococcal Vaccination/Date Given: No Immunizations Up to Date: Yes Travel Risk - International Travel Have you traveled outside of the country in past 3 weeks: No - Coronavirus Screening Are you exhibiting any of the following symptoms?: No Close contact with a COVID-19 positive Pt in past 14-21 Days: No - Vaccine Status Have you recieved a Covid-19 vaccination: Yes 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[place] - Vaccination Dates Date of 2cond Vaccination (if applicable): 10/16/20 - Review of Systems Constitutional: No Symptoms, No Fever, No Chills Eyes: No Symptoms Ears, Nose, & Throat: No Symptoms Respiratory: No Symptoms, No Cough, No Dyspnea Cardiac: No Symptoms, No Chest Pain, No Edema, No Syncope Abdominal/Gastrointestinal: No Symptoms, No Abdominal Pain, No Nausea, No Vomiting, No Diarrhea Genitourinary Symptoms: No Symptoms, No Dysuria Musculoskeletal: No Symptoms, No Back Pain, No Neck Pain Skin: No Symptoms, No Rash Neurological: No Symptoms, No Dizziness, No Focal Weakness, No Sensory Changes Psychological: No Symptoms Endocrine: No Symptoms Hematologic/Lymphatic: No Symptoms Immunological/Allergic: No Symptoms All Other Systems: Reviewed and Negative - Past Medical History Pertinent Past Medical History: Yes Neurological History: No Pertinent History ENT History: No Pertinent History Cardiac History: Arrhythmia Respiratory History: Asthma Endocrine Medical History: Hypothyroidism Musculoskeletal History: Arthritis GI Medical History: No Pertinent History History: No Pertinent History Psycho-Social History: Anxiety, Depression, Other Female Reproductive Disorders: Endometriosis Other Medical History: bradycardia with bigeminy, borderline personality - Past Surgical History Past Surgical History: Yes Neuro Surgical History: No Pertinent History Cardiac: No Pertinent History Respiratory: No Pertinent History Gastrointestinal: No Pertinent History Genitourinary: No Pertinent History Musculoskeletal: No Pertinent History Female Surgical History: Dilation & Curettage, Tubal Ligation Other Surgical History: half of thyroid removed. SKIN GRAFT. thermoablation - Social History Smoking Status: Current every day smoker How long have you smoked: 15 yrs Exposure to second hand smoke: Yes Drug Use: none Patient Lives Alone: Yes Significant Family History: no pertinent family hx - Female History Hx Now: No - Nursing Vital Signs Nursing Vital Signs: Initial Vital Signs Temperature 98.7 F 11/21/20 20:26 Pulse Rate 63 11/21/20 20:26 Respiratory Rate 18 11/21/20 20:26 Blood Pressure 150/82 11/21/20 20:26 O2 Sat by Pulse Oximetry 98 11/21/20 20:26 Pain Scale Pain Intensity 7 - Physical Exam General Appearance: no apparent distress, alert Eye Exam: PERRL/EOMI, eyes nml inspection Ears, Nose, Throat Exam: normal ENT inspection, pharynx normal, moist mucous membranes Neck Exam: normal inspection, non-tender, supple, full range of motion Respiratory Exam: normal breath sounds, lungs clear, airway intact, No respiratory distress Cardiovascular Exam: regular rate/rhythm, normal heart sounds, normal peripheral pulses Gastrointestinal/Abdomen Exam: soft, other (Mild left CVA tenderness.), No tenderness, No mass Pelvic Exam: not done Back Exam: normal inspection, normal range of motion, No CVA tenderness, No vertebral tenderness Extremity Exam: normal inspection, normal range of motion, pelvis stable Neurologic Exam: alert, oriented x 3, cooperative, normal mood/affect, nml cerebellar function, sensation nml, No motor deficits Skin Exam: normal color, warm, dry Lymphatic Exam: No adenopathy SpO2 Interpretation: normal SpO2: 98 O2 Delivery: Room Air - Course Nursing assessment & vital signs reviewed: Yes - CT Exams Abdomen/Pelvis CT Interpretation: Tele-radiologist Report (Enlarged complex predominantly cystic 4.1 x 2.7 x 2.5 cm right ovary. Contracted gallbladder. CT scan abdomen pelvis otherwise negative.) Ordered Tests: Active Orders 24 hr Category Date Time Status IV Insertion STAT Care 11/21/20 20:35 Active ABDOMEN AND PELVIS W CONTRAST [CT] Stat Exams 11/21/20 20:35 Taken CBC W DIFF Stat Lab 11/21/20 21:35 Completed CMP Stat Lab 11/21/20 21:35 Completed HCG,QUALITATIVE URINE Stat Lab 11/21/20 20:46 Completed UA W/RFX UR CULTURE Stat Lab 11/21/20 20:46 Completed Medication Summary Discontinued Medications Generic Name Dose Route Start Last Admin Trade Name Freq PRN Reason Stop Dose Admin Sodium Chloride 1,000 mls @ 999 mls/hr 11/21/20 20:35 11/21/20 21:38 Sodium Chloride 0.9% 1000 Ml IV 11/21/20 21:35 999 mls/hr .Q1H1M STA Administration Sodium Chloride Confirm 11/21/20 21:36 Sodium Chloride 0.9% 1000 Ml Administered 11/21/20 21:37 Dose 1,000 mls @ ud .ROUTE .STK-MED ONE Lab/Rad Data: Laboratory Result Diagrams 11/21/20 21:35 11/21/20 21:35 Laboratory Results 11/21/20 11/21/20 11/21/20 Range/Units 21:35 21:35 20:46 WBC 9.5 (4.0-10.5) K/mm3 RBC 4.91 (4.1-5.4) M/mm3 Hgb 14.0 (12.0-16.0) gm/dl Hct 42.4 (35-47) % MCV 86.4 (78-100) fl MCH 28.5 (26-32) pg MCHC 33.0 (32-36) g/dl RDW 13.7 (11.5-14.0) % Plt Count 284 (150-450) K/mm3 MPV 10.6 (7.5-11.0) fl Gran % 66.6 H (36.0-66.0) % Eos # (Auto) 0.21 (0-0.5) Absolute Lymphs (auto) 2.30 (1.0-4.6) Absolute Monos (auto) 0.62 (0.0-1.3) Lymphocytes % 24.2 (24.0-44.0) % Monocytes % 6.5 (0.0-12.0) % Eosinophils % 2.2 (0.00-5.0) % Basophils % 0.5 (0.0-0.4) % Absolute Granulocytes 6.32 (1.4-6.9) Basophils # 0.05 (0-0.4) Sodium 139 (137-145) mmol/L Potassium 4.2 (3.5-5.1) mmol/L Chloride 104 (98-107) mmol/L Carbon Dioxide 24 (22-30) mmol/L Anion Gap 15.1 H (5-15) MEQ/L BUN 16 (7-17) mg/dL Creatinine 0.70 (0.52-1.04) mg/dL Estimated GFR > 60.0 ML/MIN Glucose 82 (74-106) mg/dL Calcium 9.2 (8.4-10.2) mg/dL Total Bilirubin 0.30 (0.2-1.3) mg/dL AST 23 (14-36) U/L ALT 18 (0-35) U/L Alkaline Phosphatase 65 (38-126) U/L Serum Total Protein 7.0 (6.3-8.2) g/dL Albumin 4.1 (3.5-5.0) g/dL Urine Color (YELLOW) Urine Appearance (CLEAR) Urine pH (5-6) Ur Specific [place] (1.005-1.025) Urine Protein (Negative) Urine Ketones (NEGATIVE) Urine Blood (0-5) Oscar/ul Urine Nitrite (NEGATIVE) Urine Bilirubin (NEGATIVE) Urine Urobilinogen (0-1) mg/dL Ur Leukocyte Esterase (NEGATIVE) Urine WBC (Auto) (0-5) /HPF Urine RBC (Auto) (0-2) /HPF U Epithel Cells (Auto) (FEW) /HPF Urine Bacteria (Auto) (NEGATIVE) /HPF Urine Mucus (Auto) (NEGATIVE) /HPF Urine Culture Reflexed (NO) Urine Glucose (NEGATIVE) mg/dL Urine HCG, Qual NEGATIVE (Negative) 11/21/20 Range/Units 20:46 WBC (4.0-10.5) K/mm3 RBC (4.1-5.4) M/mm3 Hgb (12.0-16.0) gm/dl Hct (35-47) % MCV (78-100) fl MCH (26-32) pg MCHC (32-36) g/dl RDW (11.5-14.0) % Plt Count (150-450) K/mm3 MPV (7.5-11.0) fl Gran % (36.0-66.0) % Eos # (Auto) (0-0.5) Absolute Lymphs (auto) (1.0-4.6) Absolute Monos (auto) (0.0-1.3) Lymphocytes % (24.0-44.0) % Monocytes % (0.0-12.0) % Eosinophils % (0.00-5.0) % Basophils % (0.0-0.4) % Absolute Granulocytes (1.4-6.9) Basophils # (0-0.4) Sodium (137-145) mmol/L Potassium (3.5-5.1) mmol/L Chloride (98-107) mmol/L Carbon Dioxide (22-30) mmol/L Anion Gap (5-15) MEQ/L BUN (7-17) mg/dL Creatinine (0.52-1.04) mg/dL Estimated GFR ML/MIN Glucose (74-106) mg/dL Calcium (8.4-10.2) mg/dL Total Bilirubin (0.2-1.3) mg/dL AST (14-36) U/L ALT (0-35) U/L Alkaline Phosphatase (38-126) U/L Serum Total Protein (6.3-8.2) g/dL Albumin (3.5-5.0) g/dL Urine Color YELLOW (YELLOW) Urine Appearance SLIGHTLY CLOUDY (CLEAR) Urine pH 6.0 (5-6) Ur Specific [place] 1.021 (1.005-1.025) Urine Protein NEGATIVE (Negative) Urine Ketones NEGATIVE (NEGATIVE) Urine Blood NEGATIVE (0-5) Oscar/ul Urine Nitrite NEGATIVE (NEGATIVE) Urine Bilirubin NEGATIVE (NEGATIVE) Urine Urobilinogen 2 (0-1) mg/dL Ur Leukocyte Esterase NEGATIVE (NEGATIVE) Urine WBC (Auto) 3-5 (0-5) /HPF Urine RBC (Auto) 0-2 (0-2) /HPF U Epithel Cells (Auto) RARE (FEW) /HPF Urine Bacteria (Auto) RARE (NEGATIVE) /HPF Urine Mucus (Auto) SLIGHT (NEGATIVE) /HPF Urine Culture Reflexed NO (NO) Urine Glucose NEGATIVE (NEGATIVE) mg/dL Urine HCG, Qual (Negative) - Progress Progress: improved Progress Note: Patient reassessed. She feels well. No active pain. CT abdomen pelvis essentially nonremarkable except for a right ovarian cyst. No acute intra- abdominal pathology otherwise. Laboratory work-up essentially nonremarkable. UA negative for UTI. Patient agrees to follow-up with primary care doctor within 48 hours for reevaluation. Patient voices no other complaints at this time. Patient states he is ready for discharge. Portions of this note were created with voice recognition technology. There may be grammatical, spelling, punctuation or sound alike errors 11/21/20 23:38 Counseled pt/family regarding: lab results, diagnosis, need for follow-up, rad results - Departure Departure Disposition: Home Clinical Impression: Right ovarian cyst, Abdominal pain Condition: Stable Critical Care Time: No Referrals: NEREYDA ROBLES, [Primary Care Provider] - Additional Instructions: You have an enlarged complex ovary. Please follow-up with your primary care doctor within 48 hours for further evaluation. Discharge/Care Plan GUYBIRDIE CHAN was seen on 11/21/20 in the Emergency Room. The patient was counseled regarding Diagnosis,Lab results, Imaging studies, need for follow up and when to return to the Emergency Room. Prescriptions given: Discharge Note I have spoken with the patient and/or caregivers. I have explained the patient's condition, diagnosis and treatment plan based on the information available to me at this time. I have answered the patient's and/or caregiver's questions and addressed any concerns. The patient and/or caregivers have as good understanding of the patient's diagnosis, condition and treatment plan as can be expected at this point. The vital signs have been stable. The patient's condition is stable and appropriate for discharge from the emergency department. The patient will pursue further outpatient evaluation with the primary care physician or other designated or consulting physician as outlined in the discharge instructions. The patient and/or caregivers are agreeable to this plan of care and follow-up instructions have been explained in detail. The patient and/or caregivers have received these instruction. The patient/and or caregivers are aware that any significant change in condition or worsening of symptoms shou ld prompt an immediate return to this or the closest emergency department or call 911.
[2020-11-21 21:57] LABS: ALBUMIN 4.1 g/dL (3.5-5.0); ALKALINE PHOSPHATASE 65 U/L (38-126); ANION GAP 15.1 MEQ/L (5-15); BLOOD UREA NITROGEN 16 mg/dL (7-17); CHLORIDE 104 mmol/L (98-107); Calcium 9.2 mg/dL (8.4-10.2); Carbon Dioxide 24 mmol/L (22-30); EST GLOMERULAR FILTRATION RATE > 60.0 ML/MIN; Glucose 82 mg/dL (74-106); Potassium 4.2 mmol/L (3.5-5.1); SGOT/AST 23 U/L (14-36); SGPT/ALT 18 U/L (0-35); SODIUM 139 mmol/L (137-145)
[2020-11-21 23:54] VITALS: BP 136/85; PULSE 54; O2SAT 100
--- NOTE | 2020-11-22 09:00 | XRAY ---
Indication: Left abdomen pain 2 days. Multiple contiguous axial images obtained through the abdomen and pelvis using 80 cc Isovue 370 contrast. Comparison: September 23, 2012. Lung bases demonstrates minimal fibrosis/scarring. No infiltrate or effusion. Heart is not enlarged. New small hiatal hernia. Noncontrasted stomach and bowel loops appear nonobstructed again with normal appendix. There is again mild diffuse scattered colonic fecal debris throughout. Right ovary demonstrates 2-3 cysts, largest 2.4 cm. No free fluid/air. Remaining liver, gallbladder, pancreas, spleen, adrenal glands, kidneys, ureters, bladder, uterus, and aorta appear normal in CT appearance and attenuation. No pathologic retroperitoneal lymphadenopathy. Osseous structures intact. Impression: 1. New right ovary cysts. Pelvic sonogram may of further information if clinically warranted. 2. New small hiatal hernia. 3. Again diffuse fecal stasis. 4. Remaining CT abdomen/pelvis with contrast exam is negative. Comment: Preliminary interpretation made by C. No critical discrepancy.
== END 2020-11-21 23:53 | disposition home or self-care (01) ==
LOC: ED 19:33
DX: N83.201 Unspecified ovarian cyst, right side (principal); R10.32 Left lower quadrant pain
CPT/HCPCS: 36000; 36415; 74177; 80053; 81001; 84703; 85025; 99284

== ENCOUNTER 2021-05-26 13:22 | Emergency (ER) | payer OTHER ==
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
[2021-05-26 13:36] VITALS: BP 118/78; PULSE 74; O2SAT 98
--- NOTE | 2021-05-26 13:57 | XRAY ---
Indication: Pain following injury. Comparison: None 2 view right forearm demonstrates diffuse distal soft tissue swelling/edema and a proximal anterior cutaneous staple. No other bony, articular, or soft tissue abnormalities.
== END 2021-05-26 14:06 | disposition home or self-care (01) ==
LOC: ED 13:22
DX: M79.631 Pain in right forearm (principal); W20.8XXA Other cause of strike by thrown, projected or falling object, initial encounter; Z72.0 Tobacco use; Z79.899 Other long term (current) drug therapy
CPT/HCPCS: 73090; 99283

== ENCOUNTER 2021-10-12 19:51 | Emergency (ER) | payer OTHER ==
--- NOTE | 2021-10-12 21:18 | ERPHSYRPT ---
- History of Present Illness Source: patient Exam Limitations: no limitations Patient Subjective Stated Complaint: pt arrived in er stating that she fell today on a sidewalk tripping over the curb. states she hit both knees when she fell. states she has no pain in either leg at this time, but does have swelling in left knee only. Triage Nursing Assessment: pt alert and oriented, states she did not hit her head when she fell, has abrasions on both knees, left knee appears swollen, pt walked to ER room from triage. Physician History: 41 yo wf tripped on sidewalk at 12:00PM today and has abrasion on B pre-patellar areas. She is in minimal pain at best. Pt has a very small abrasion on R palm. She denies head injury/C,T,or L-spine pain/chest pain/abdominal pain. Tetanus is UTD. Method of Injury: fell Occurred: other (12:00PM) Quality: other (Denies pain) Severity of Pain-Max: none Severity of Pain-Current: none Lower Extremities Pain: knee: left Modifying Factors: Improves With: nothing, movement Associated Symptoms: none Allergies/Adverse Reactions: metronidazole [From Flagyl] Allergy (Mild, Verified 10/12/21 20:28) trimethoprim [From Septra] Allergy (Mild, Verified 10/12/21 20:28) amitriptyline Adverse Reaction (Mild, Verified 10/12/21 20:28) Home Medications: Metoprolol Succinate 25 mg Xl* [Toprol-Xl 25MG Tablets] 12.5 mg PO DAILY 05/29/15 [History] PARoxetine HCl [Paxil] 20 mg PO DAILY 05/29/15 [History] Baclofen 10 mg PO DAILY PRN PRN 11/21/20 [History] Melatonin 10 mg PO DAILY 11/21/20 [History] Meloxicam 15 mg PO DAILY 11/21/20 [History] Hydroxyzine HCl 25 mg [Atarax 25 mg] 25 mg PO DAILY 05/26/21 [History] Loratadine 10 mg [Claritin 10 mg] 10 mg PO DAILY 05/26/21 [History] Hx Tetanus, Diphtheria Vaccination/Date Given: Yes Hx Influenza Vaccination/Date Given: No Hx Pneumococcal Vaccination/Date Given: No Travel Risk - International Travel Have you traveled outside of the country in past 3 weeks: No - Coronavirus Screening Are you exhibiting any of the following symptoms?: No Close contact with a COVID-19 positive Pt in past 14-21 Days: No - Vaccine Status Have you recieved a Covid-19 vaccination: Yes 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 - Vaccination Dates Date of 2cond Vaccination (if applicable): unknown - Review of Systems Constitutional: No Symptoms Eyes: No Symptoms Ears, Nose, & Throat: No Symptoms Respiratory: No Symptoms Cardiac: No Symptoms Abdominal/Gastrointestinal: No Symptoms Genitourinary Symptoms: No Symptoms Skin: No Symptoms Neurological: No Symptoms Psychological: No Symptoms Endocrine: No Symptoms Hematologic/Lymphatic: No Symptoms Immunological/Allergic: No Symptoms - Past Medical History Pertinent Past Medical History: Yes Neurological History: No Pertinent History ENT History: No Pertinent History Cardiac History: Arrhythmia Respiratory History: Asthma Endocrine Medical History: Hypothyroidism Musculoskeletal History: Arthritis GI Medical History: No Pertinent History History: No Pertinent History Psycho-Social History: Anxiety, Depression, Other Female Reproductive Disorders: Endometriosis Other Medical History: bradycardia with bigeminy, borderline personality, 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 SKIN GRAFT. thermoablation - Social History Smoking Status: Current every day smoker How long have you smoked: 15 yrs Exposure to second hand smoke: Yes Drug Use: none Patient Lives Alone: Yes Significant Family History: no pertinent family hx - Female History Hx Last Menstrual Period: 4 years ago, ablasion Hx Now: No - Nursing Vital Signs Nursing Vital Signs: Initial Vital Signs Temperature 97.7 F 10/12/21 20:17 Pulse Rate 62 10/12/21 20:17 Respiratory Rate 18 10/12/21 20:17 Blood Pressure 132/95 10/12/21 20:17 O2 Sat by Pulse Oximetry 98 10/12/21 20:17 Pain Scale Pain Intensity 0 WNL - Physical Exam General Appearance: no apparent distress Eyes, Ears, Nose, Throat Exam: normal ENT inspection, TMs normal, pharynx normal, moist mucous membranes Neck Exam: normal inspection, non-tender, supple, full range of motion, other (C-spine NTTP), No Brudzinski, No Kernig's, No meningismus, No limited range of motion Cardiovascular/Respiratory Exam: chest non-tender, normal breath sounds, regular rate/rhythm, heart sounds normal Gastrointestinal/Abdominal Exam: non-tender, soft, no organomegaly Back Exam: normal inspection, normal range of motion, vertebral tenderness (No T or L-spine TTP), No CVA tenderness Hips Exam: bilateral: non-tender, normal inspection, normal range of motion, no evidence of injury Legs Exam: bilateral leg: non-tender, normal inspection, normal range of motion, no evidence of injury Knees Exam: bilateral knee: non-tender, other (B pre-patellar abrasions L>R/Mild L knee edema/No instability B/Good B pedal pulses, distal sensation, and capillary return) Ankle Exam: bilateral ankle: non-tender, normal inspection, normal range of motion, no evidence of injury Foot Exam: bilateral foot: non-tender, normal inspection, normal range of motion, no evidence of injury Neuro/Tendon Exam: normal sensation, normal motor functions, normal tendon functions, responds to pain, no evidence tendon injury, No motor deficit, No sensory deficit Mental Status Exam: alert, oriented x 3, cooperative Skin Exam: normal color, warm, dry SpO2 Interpretation: normal SpO2: 99 O2 Delivery: Room Air - Radiology Exams Knee X-ray Interpretation: Interpreted by me (L knee neg per ER read) Ordered Tests: Active Orders 24 hr Category Date Time Status KNEE (3 VIEWS) Stat Exams 10/12/21 22:05 Taken - Progress Progress Note: 10/12/21 22:09 Pt refused pain meds during entire stay - Departure Departure Disposition: Home Clinical Impression: Knee contusion Condition: Stable Critical Care Time: No Referrals: NEREYDA ROBLES DO [Primary Care Provider] - Follow up/PCP as directed Instructions: Contusion (DC), Knee Pain (DC) Additional Instructions: Wash knee abrasions with soap/water 1-2 times a day Motrin/Tylenol for pain Ice to knees for 12-24 hours Weight bearing as tolerated Follow up with your family MD or orthopedic surgeon
[2021-10-12 22:10] VITALS: BP 147/100; PULSE 47
[2021-10-12 22:12] VITALS: O2SAT 99
--- NOTE | 2021-10-13 08:54 | XRAY ---
Indication: Pain following fall. Comparison: January 01, 2016 3 view left knee obtained. Again no bony, articular, or soft tissue abnormalities.
== END 2021-10-12 22:18 | disposition home or self-care (01) ==
LOC: ED 19:51
DX: S80.02XA Contusion of left knee, initial encounter (principal); S80.01XA Contusion of right knee, initial encounter; W01.0XXA Fall on same level from slipping, tripping and stumbling without subsequent striking against object, initial encounter; Y93.01 Activity, walking, marching and hiking; Y92.480 Sidewalk as the place of occurrence of the external cause; Z72.0 Tobacco use; Z79.899 Other long term (current) drug therapy
CPT/HCPCS: 73562; 99282

== ENCOUNTER 2021-10-17 12:37 | Emergency (ER) | payer OTHER ==
[2021-10-17 12:49] VITALS: PULSE 68; O2SAT 96
--- NOTE | 2021-10-17 13:01 | ERPHSYRPT ---
- History of Present Illness Time Seen by Provider: 10/17/21 12:51 Source: patient Exam Limitations: no limitations Patient Subjective Stated Complaint: Abrasion to left knee Triage Nursing Assessment: Patient ambulated back to ED and transferred self to bed. Patient A+OX 3. Patient's skin pink, warm and dry. Patient states she had a fall one week ago and has an abrasion to left knee. Patient was seen in [facility] 3 days ago and had xray to left knee and prescriebed Bactroban TID to abrasion to left knee. Patient states her left knee is swollen and red and hurts 8/10. Physician History: 41 years old female presented in ER with chief complaint of left knee pain and swelling after she fell almost a week ago and has abrasion which is progressively getting more painful, red and hot. Pain is more with ambulation and better with being still. Moderate to severe with activity. No fever or chills reported. Patient has x-rays done few days ago and they were negative. Does have history of MRSA. Timing/Duration: week(s) (1), gradual onset, worse Quality: painful Severity: mild, moderate Location: extremities Associated Symptoms: rash, swelling/mass/lumps Allergies/Adverse Reactions: metronidazole [From Flagyl] Allergy (Mild, Verified 10/17/21 12:42) trimethoprim [From Septra] Allergy (Mild, Verified 10/17/21 12:42) amitriptyline Adverse Reaction (Mild, Verified 10/17/21 12:42) Home Medications: Metoprolol Succinate 25 mg Xl* [Toprol-Xl 25MG Tablets] 12.5 mg PO DAILY 05/29/15 [History] PARoxetine HCl [Paxil] 20 mg PO DAILY 05/29/15 [History] Baclofen 10 mg PO DAILY PRN PRN 11/21/20 [History] Melatonin 10 mg PO DAILY 11/21/20 [History] Meloxicam 15 mg PO DAILY 11/21/20 [History] Hydroxyzine HCl 25 mg [Atarax 25 mg] 25 mg PO DAILY 05/26/21 [History] Loratadine 10 mg [Claritin 10 mg] 10 mg PO DAILY 05/26/21 [History] Hx Tetanus, Diphtheria Vaccination/Date Given: Yes Hx Influenza Vaccination/Date Given: No Hx Pneumococcal Vaccination/Date Given: No Immunizations Up to Date: Yes Travel Risk - International Travel Have you traveled outside of the country in past 3 weeks: No - Coronavirus Screening Are you exhibiting any of the following symptoms?: No Close contact with a COVID-19 positive Pt in past 14-21 Days: No - Vaccine Status Have you recieved a Covid-19 vaccination: Yes 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 - Vaccination Dates Date of 2cond Vaccination (if applicable): unknown - Review of Systems Constitutional: No Symptoms Ears, Nose, & Throat: No Symptoms Respiratory: No Symptoms Cardiac: No Symptoms Genitourinary Symptoms: No Symptoms Musculoskeletal: Injury Skin: Skin Lesions Neurological: No Symptoms Endocrine: No Symptoms Hematologic/Lymphatic: No Symptoms Immunological/Allergic: No Symptoms - Past Medical History Pertinent Past Medical History: Yes Neurological History: No Pertinent History ENT History: No Pertinent History Cardiac History: Arrhythmia Respiratory History: Asthma Endocrine Medical History: Hypothyroidism Musculoskeletal History: Arthritis GI Medical History: No Pertinent History History: No Pertinent History Psycho-Social History: Anxiety, Depression, Other Female Reproductive Disorders: Endometriosis Other Medical History: bradycardia with bigeminy, borderline personality, 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 SKIN GRAFT. thermoablation - Social History Smoking Status: Current every day smoker How long have you smoked: 15 yrs Exposure to second hand smoke: Yes Drug Use: none Patient Lives Alone: No Significant Family History: no pertinent family hx - Female History Hx Last Menstrual Period: ablation 4 years ago Hx Now: No - Nursing Vital Signs Nursing Vital Signs: Initial Vital Signs Temperature 97.3 F 10/17/21 12:43 Pulse Rate 68 10/17/21 12:43 Respiratory Rate 19 10/17/21 12:43 Blood Pressure 142/91 10/17/21 12:43 O2 Sat by Pulse Oximetry 97 10/17/21 12:43 Pain Scale Pain Intensity 3 - Physical Exam General Appearance: no apparent distress, alert Eye Exam: PERRL/EOMI Ears, Nose, Throat Exam: normal ENT inspection Neck Exam: normal inspection, full range of motion Respiratory Exam: normal breath sounds, lungs clear Cardiovascular Exam: regular rate/rhythm, normal heart sounds Extremity Exam: inflammation, joint swelling, swelling (Abrasion left knee with superficial pustules, surrounding erythema/induration. Warm tender to touch. Intact range of motion of left knee joint.), tenderness Neurologic Exam: alert, oriented x 3, cooperative Skin Exam: normal color SpO2 Interpretation: normal SpO2: 96 O2 Delivery: Room Air - Progress Progress: unchanged Progress Note: 10/17/21 13:00 She is offered pain medication which she refused. I would start her on clindamycin which would cover for MRSA as well. Recommended rest, ice, outpati ent follow-up. Discussed signs symptoms of worsening needing return to ER which she seems understanding. Counseled pt/family regarding: diagnosis, need for follow-up - Departure Departure Disposition: Home Clinical Impression: Cellulitis of knee, left Condition: Stable Critical Care Time: No Referrals: NEREYDA ROBLES DO [Primary Care Provider] - Follow Up with PCP/3 days Instructions: Cellulitis (Skin Infection), Adult ED Additional Instructions: Take Tylenol/ibuprofen as needed. Follow-up with primary care for reevaluation. Avoid exertional activities. Return to ER for increasing swelling pain or if develop fever chills/restricted movements at knee. Prescriptions: clindamycin HCL [Clindamycin HCl] 300 mg PO QID 7 Days #28 cap
[2021-10-17 13:31] VITALS: BP 125/82
== END 2021-10-17 13:31 | disposition home or self-care (01) ==
LOC: ED 12:37
DX: L03.116 Cellulitis of left lower limb (principal); M25.562 Pain in left knee; Z72.0 Tobacco use; Z79.899 Other long term (current) drug therapy
CPT/HCPCS: 99281